=== PATIENT | male | born 1980 | race Caucasian/White ===

== ENCOUNTER 2017-08-14 15:58 | Emergency (ER) | payer OTHER ==
[~2017-08-14] VITALS: Wt 102.1 kg
[~2017-08-14 15:58] MED LIST: BACTRIM DS 8001 TA1 PO; CLARITIN10 MG PO; KEFLEX500 MG PO; LISINOPRIL20 MG PO; MEDROL DOSEPAK4 MG PO; PRILOSEC20 MG PO; VICODIN 5/500 505 MG PO
== END 2017-08-14 18:18 | disposition home or self-care (01) ==
LOC: ED 15:58
DX: S80.02XA Contusion of left knee, initial encounter (principal); Z79.899 Other long term (current) drug therapy; Z88.2 Allergy status to sulfonamides; V49.88XA Car occupant (driver) (passenger) injured in other specified transport accidents, initial encounter; Y93.89 Activity, other specified; Y92.413 State road as the place of occurrence of the external cause; Y99.9 Unspecified external cause status